=== PATIENT | female | born 1970 | race Caucasian/White ===

== ENCOUNTER 2024-10-03 08:00 | Outpatient (RCR) | payer OTHER, SELFPAY ==
--- NOTE | 2024-09-26 11:30 | RT.EKG_ITS ---
APPROVED REPORT Exam: Resting ECG Reason for Exam: CR Intake Appointment - Baseline EKG Patient Location: O HR:71 bpm ECG Measurements Heart Rate 71 AXIS VA 180 P 33 QRSd 88 QRS 13 QT 415 T 54 QTc 451 Conclusion Sinus rhythm...normal P axis, V-rate 50- 99 Left atrial enlargement...P, P'>60mS, <-0.15mV V1 Otherwise normal ECG
== END 2024-10-05 23:59 | disposition home or self-care (01) ==
LOC: CR 08:00
PROVIDERS: PCP Internal Medicine; Visit Provider Internal Medicine Cardiovascular Disease
DX: I71.21 Aneurysm of the ascending aorta, without rupture (principal); Z95.3 Presence of xenogenic heart valve
CPT/HCPCS: S9472

== ENCOUNTER 2024-11-03 08:00 | Outpatient (RCR) | payer OTHER, SELFPAY | END 2024-11-04 23:59 | disposition home or self-care (01) | LOC: CR 08:00 | PROVIDERS: PCP Internal Medicine; Visit Provider Internal Medicine Cardiovascular Disease | DX: I71.21 Aneurysm of the ascending aorta, without rupture (principal); Z95.3 Presence of xenogenic heart valve; Z51.89 Encounter for other specified aftercare | CPT/HCPCS: S9472 ==

== ENCOUNTER 2024-12-05 08:00 | Outpatient (RCR) | payer OTHER, SELFPAY | END 2024-12-05 23:59 | disposition home or self-care (01) | LOC: CR 08:00 | PROVIDERS: PCP Internal Medicine; Visit Provider Internal Medicine Cardiovascular Disease | DX: I71.21 Aneurysm of the ascending aorta, without rupture (principal); Z95.3 Presence of xenogenic heart valve; Z51.89 Encounter for other specified aftercare | CPT/HCPCS: S9472 ==

== ENCOUNTER 2024-12-31 08:00 | Outpatient (RCR) | payer OTHER, SELFPAY | END 2025-01-04 23:59 | disposition home or self-care (01) | LOC: CR 08:00 | PROVIDERS: PCP Internal Medicine; Visit Provider Internal Medicine Cardiovascular Disease | DX: I71.21 Aneurysm of the ascending aorta, without rupture (principal); Z51.89 Encounter for other specified aftercare; Z95.5 Presence of coronary angioplasty implant and graft | CPT/HCPCS: S9472 ==

== ENCOUNTER 2025-01-14 08:00 | Outpatient (RCR) | payer OTHER, SELFPAY | END 2025-02-04 23:59 | disposition home or self-care (01) | LOC: CR 08:00 | PROVIDERS: PCP Internal Medicine; Visit Provider Internal Medicine Cardiovascular Disease | DX: Z51.89 Encounter for other specified aftercare (principal); I71.21 Aneurysm of the ascending aorta, without rupture | CPT/HCPCS: S9472 ==